=== PATIENT | female | born 1980 | race African-American/Black ===

== ENCOUNTER 2017-06-06 08:36 | Emergency (ER) | payer MEDICAID ==
[~2017-06-06] VITALS: Ht 167.6 cm; Wt 56.4 kg
[2017-06-06 08:38] VITALS: BP 146/95
== END 2017-06-06 09:39 | disposition home or self-care (01) ==
LOC: ED 09:15
DX: M79.89 Other specified soft tissue disorders (principal); F12.10 Cannabis abuse, uncomplicated
CPT/HCPCS: 99281

== ENCOUNTER 2018-11-16 08:17 | Observation (INO) | payer MEDICAID ==
[2018-11-16] VITALS (9 sets, daily range): BP systolic 131–170; BP diastolic 86–109
[~2018-11-16] VITALS: Ht 165.1 cm; Wt 56.8 kg
--- NOTE | 2018-11-16 08:51 | NUR ---
PT REPORTS HAVING ANGIOEDEMA X 3 MONTHS. STATED THAT IT IS WORSE TODAY, SOB, SORE THROAT, AND SWOLLEN FACE. PT IS ALERT, ORIENTED, WITH NAD. PT IS CONNECTED TO THE MONITOR. CALL LIGHT WITHIN REACH. FAMILY AT BEDSIDE.
[2018-11-16] MEDS ORDERED: DIPHENHYDRAMINE 25 MG CAPSULE PO ONE (09:00)
[2018-11-16] MEDS ORDERED: FAMOTIDINE 20 MG TABLET PO ONE (09:00)
[2018-11-16] MEDS ORDERED: FAMOTIDINE 20 MG TABLET ONE (09:08)
[2018-11-16] MEDS ORDERED: DIPHENHYDRAMINE 25 MG CAPSULE ONE (09:08)
--- NOTE | 2018-11-16 09:15 | NUR ---
PT MEDICATED PER ORDER.
--- NOTE | 2018-11-16 10:10 | NUR ---
PT IS RESTING IN BED, WATCHING TV, RESPIRATIONS EQUAL AND NON LABORED. NAD. PT IS CONNECTED TO THE MONITOR. CALL LIGHT WITHIN REACH.
--- NOTE | 2018-11-16 11:06 | NUR ---
PT IS RESTING IN BED, WITH EYES CLOSED, RESPIRATIONS EQUAL AND NON LABORED. NAD. PT IS CONNECTED TO THE MONITOR. CALL LIGHT WITHIN REACH.
--- NOTE | 2018-11-16 11:13 | NUR ---
REPORT GIVEN TO FILIBERTO LEE.
[2018-11-16] MEDS ORDERED: LORA10TA75 PO (11:41)
[2018-11-16] MEDS ORDERED: DIPH25TA65 PO (11:43)
[2018-11-16] MEDS ORDERED: ACET325C5 PO (11:44)
[2018-11-16] MEDS ORDERED: ONDANSETRON 2MG/ML, 2ML IVPush PRN (12:30)
[2018-11-16] MEDS ORDERED: methylPREDNISolone SOD SUCC 125 MG/2 ML IVPush ONE (12:30)
[2018-11-16] MEDS ORDERED: DIPHENHYDRAMINE 50 MG/ML, 1ML IVPush PRN (12:30)
[2018-11-16 13:13] LABS: ANION GAP 2 mmol/L (5-15); CALCIUM 8.7 mg/dL (8.5-10.1); CHLORIDE 111 mmol/L (98-107); CREATININE 1.24 mg/dL (0.55-1.02)
[2018-11-16] MEDS ORDERED: POTASSIUM CHLORIDE 20 MEQ TAB.ER.PRT PO ONE (14:00)
[2018-11-16] MEDS ORDERED: FUROSEMIDE 40 MG/4 ML IV ONE (14:00)
[2018-11-16] MEDS: SODIUM CHLORIDE 0.9% 1,000 ML IV SCH (14:47)
[2018-11-16 15:38] LABS: AMPHETAMINE SCREEN, URINE Negative (Negative); BARBITURATE SCREEN, URINE Negative (Negative); BENZODIAZEPINE SCREEN, URINE Negative (Negative); CANNABINOID SCREEN, URINE Positive (Negative); COCAINE SCREEN, URINE Positive (Negative); METHADONE SCREEN, URINE Negative (Negative); OPIATE SCREEN, URINE Negative (Negative)
[2018-11-16] MEDS: methylPREDNISolone SOD SUCC 125 MG/2 ML IVPush SCH (18:31)
[2018-11-16] MEDS: FAMOTIDINE 20 MG TABLET PO SCH (20:34)
[2018-11-16] MEDS ORDERED: ACETAMINOPHEN 325 MG TABLET ONE (23:12)
[2018-11-16] MEDS: ACETAMINOPHEN 325 MG TABLET PO PRN (23:13)
[2018-11-17] MEDS: methylPREDNISolone SOD SUCC 125 MG/2 ML IVPush SCH ×3 (00:41→14:30)
[2018-11-17] MEDS: SODIUM CHLORIDE 0.9% 1,000 ML IV SCH (00:43)
[2018-11-17 04:04] VITALS: BP 179/89
[2018-11-17] MEDS: ACETAMINOPHEN 325 MG TABLET PO PRN ×2 (04:06→09:57)
[2018-11-17 05:13] LABS: ANION GAP 3 mmol/L (5-15); CALCIUM 8.4 mg/dL (8.5-10.1); CHLORIDE 108 mmol/L (98-107)
[2018-11-17 05:15] LABS: CREATININE 1.16 mg/dL (0.55-1.02)
[2018-11-17 05:50] VITALS: BP 162/96
[2018-11-17] MEDS: FAMOTIDINE 20 MG TABLET PO SCH (08:06)
[2018-11-17 08:15] VITALS: BP 159/117
[2018-11-17] MEDS ORDERED: AMLODIPINE 5 MG TABLET PO SCH (09:00)
[2018-11-17] MEDS ORDERED: HYDROCHLOROTHIAZIDE 25 MG TABLET PO SCH (09:00)
[2018-11-17 11:05] VITALS: BP 151/90
[2018-11-17] MEDS ORDERED: METOPROLOL TARTRATE 50 MG TABLET PO SCH (11:30)
[2018-11-17 13:30] VITALS: BP 147/88
[2018-11-17] MEDS ORDERED: HYDR25TA6 PO (15:35)
[2018-11-17] MEDS ORDERED: AMLO-150 PO (15:35)
== END 2018-11-17 17:50 | disposition home or self-care (01) ==
LOC: ED 10:59 → SUATTDRO 11:10 → INTOOBSV 11:30 → EDIP 11:30 → 4EST 11:32
PROVIDERS: ADMIT Hospitalist; ATTEND Hospitalist
DX: D84.1 Defects in the complement system (principal); I10 Essential (primary) hypertension; L29.9 Pruritus, unspecified; Z87.891 Personal history of nicotine dependence; Z79.899 Other long term (current) drug therapy
CPT/HCPCS: 36415; 36430; 80048; 80307; 86160; 86850; 86900; 96374; 96375; 96376; 99284; G0378; J1200; J1940; J2930; J7030; J7512; P9017; Q0163

== ENCOUNTER 2020-07-14 19:52 | Emergency (ER) | payer SELFPAY ==
[~2020-07-14] VITALS: Ht 165.1 cm; Wt 62.3 kg
[~2020-07-14 19:52] MED LIST: ACET325C6 PO; AMLO-150 PO; DIPH25TA65 PO; HYDR25TA6 PO; LORA10TA75 PO
[2020-07-14] MEDS ORDERED: SODIUM CHLORIDE FLUSH 10ML SYR IVF ONE (21:00)
[2020-07-14] MEDS ORDERED: SODIUM CHLORIDE 0.9% 1,000ML IVBOLUS ONE (21:00)
[2020-07-14 21:13] LABS: BASOPHILS % (AUTO) 1 % (0-1); EOSINOPHILS % (AUTO) 2 % (1-7); LYMPHOCYTES % (AUTO) 17 % (22-44); MEAN CORPUSCULAR HEMOGLOBIN 30.8 pg (27.0-34.8); MEAN CORPUSCULAR HGB CONC 33.3 g/dL (32.4-35.8); MEAN PLATELET VOLUME 9.3 fL (7.4-10.4); MONOCYTES % (AUTO) 4 % (2-9); NEUTROPHILS % (AUTO) 77 % (42-75); PLATELET COUNT 196 x10^3/uL (130-400); RED BLOOD COUNT 4.81 x10^6/uL (3.82-5.3); RED CELL DISTRIBUTION WIDTH 12.3 % (9.6-15.2)
[2020-07-14 21:15] LABS: MD NO
[2020-07-14 21:21] LABS: ALANINE AMINOTRANSFERASE 11 U/L (12-78); ALBUMIN 4.1 g/dL (3.4-5.0); ANION GAP 3 mmol/L (5-15); CHLORIDE 105 mmol/L (98-107); CREATININE 1.15 mg/dL (0.55-1.02)
[2020-07-14 21:25] LABS: ALKALINE PHOSPHATASE 78 U/L (45-117); BILIRUBIN,TOTAL 0.4 mg/dL (0.2-1.0); TOTAL PROTEIN 8.5 g/dL (6.4-8.2)
--- NOTE | 2020-07-14 21:30 | NUR ---
PT CAME INTO ED TODAY AFTER EATING WINGSTOP AND BEGINNING TO FELL NAUSEATED. PT DENIES ABDOMINAL PAIN, THREW UP TWICE, PT STATES SHE JUST DOESNT FEEL WELL. PT STATES THAT SHE STILL FEELS A BIT LIKE SHES GOING TO THROW UP. DENIES CHANGES. NAD, GIVEN WARM BLANKETS FOR COMFORT. WAITING FOR UA. PT PLACED ON SPO2/BP MONITORING. MEDICATED PER NOV.
[2020-07-14] MEDS ORDERED: PROMETHAZINE 25 MG/ML, 1ML IM ONE (22:00)
[2020-07-14] MEDS ORDERED: DICYCLOMINE 10 MG/ML, 2ML IM ONE (22:00)
[2020-07-14] MEDS ORDERED: ONDANSETRON 2MG/ML, 2ML IVPush ONE (22:00)
[2020-07-14] MEDS ORDERED: PROMETHAZINE 25 MG/ML, 1ML ONE (22:03)
[2020-07-14] MEDS ORDERED: DICYCLOMINE 10 MG/ML, 2ML ONE (22:04)
[2020-07-14] MEDS ORDERED: ONDANSETRON 2MG/ML, 2ML ONE (22:04)
--- NOTE | 2020-07-14 22:30 | NUR ---
LATE ENTRY D/T PT CARE: PT NAD, RESTING ON GURNEY, MEDICATED PER MAR, STATES SHE IS FEELING SLIGHTLY BETTER. NO OTHER CHANGES IN CONDITION, WCTM.
--- NOTE | 2020-07-14 23:16 | NUR ---
PT NAD, RESTING ON GURNEY, EYES CLSOED, APPEARS COMFORTABLE. WCTM. PT TO BE DC'D
[2020-07-14 23:18] VITALS: BP 146/85
[2020-07-14 23:32] LABS: MICROSCOPIC NOT IND
--- NOTE | 2020-07-14 23:43 | NUR ---
Patient given discharge instructions and they have confirmed that they understand the instructions. Patient ambulatory with steady gait. NAD, DENIES ADDITIONAL QUESTIONS OR NEEDS AT THIS TIME. NO PERSONAL BELONGINGS LEFT IN ROOM AFTER DC.
== END 2020-07-14 23:44 | disposition home or self-care (01) ==
LOC: ED 23:40
DX: K52.29 Other allergic and dietetic gastroenteritis and colitis (principal); E86.0 Dehydration; R11.2 Nausea with vomiting, unspecified; R19.7 Diarrhea, unspecified; R10.13 Epigastric pain; Z87.891 Personal history of nicotine dependence
CPT/HCPCS: 36415; 80053; 81003; 83690; 84703; 85025; 96361; 96372; 96374; 99284; J0500; J2405; J2550; J7030